=== PATIENT | male | born 2000 | race Two or more races ===

== ENCOUNTER 2020-11-05 17:55 | Emergency (ER) | payer BC ==
[~2020-11-05] VITALS: Ht 180.3 cm; Wt 81.6 kg
[2020-11-05 18:00] VITALS: BP 144/84
== END 2020-11-05 22:27 | disposition home or self-care (01) ==
LOC: ER 17:56
DX: N44.00 Torsion of testis, unspecified (principal); N50.1 Vascular disorders of male genital organs
CPT/HCPCS: 76870